=== PATIENT | female | born 1960 | race Two or more races ===

== ENCOUNTER 2020-07-08 04:17 | Day surgery (SDC) | payer OTHER ==
[2020-07-05 12:24] VITALS: BMI 31.4
[2020-07-08] MEDS ORDERED: LIDOCAINE HCL/PF 1% SDV 5ML VIAL ONE (08:47)
[2020-07-08] MEDS ORDERED: DEXAMETHASONE SOD PHOSPHATE 4 MG/1 ML VIAL ONE (08:47)
[2020-07-08] MEDS ORDERED: BUPIVACAINE HCL/PF 0.75% 10 ML VIAL ONE (08:48)
[2020-07-08] MEDS ORDERED: IOHEXOL 180 MG/1 ML ML IJ ONE ×2 (10:43→10:55)
[2020-07-08] MEDS ORDERED: LIDOCAINE HCL 1% PRESERVATIVE FREE - 30ML VIAL IJ ONE ×2 (10:44→10:55)
[2020-07-08] MEDS ORDERED: BUPIVACAINE HCL/PF 0.25% (2.5MG/ML) 10 ML VIAL IJ ONE ×2 (10:45→10:55)
[2020-07-08] MEDS ORDERED: TRIAMCINOLONE ACET 40MG/1ML VIAL NR ONE ×2 (10:45→10:55)
[2020-07-08 11:22] VITALS: BP 131/67; PULSE 58; TEMP 97.5
== END 2020-07-08 11:50 | disposition home or self-care (01) ==
LOC: JASU-SURG 04:17
PROVIDERS: ATTEND Pain Medicine Pain Medicine
PROC: 3E0U3BZ Introduction of Anesthetic Agent into Joints, Percutaneous Approach (ICD-10-PCS; 2020-07-08)
PROC: 3E0U33Z Introduction of Anti-inflammatory into Joints, Percutaneous Approach (ICD-10-PCS; principal; 2020-07-08 11:30)
DX: M25.551 Pain in right hip (principal)
CPT/HCPCS: 76000-TC-FY

== ENCOUNTER 2021-01-13 04:20 | Day surgery (SDC) | payer OTHER ==
[2021-01-10 11:12] VITALS: BMI 32.0
[2021-01-13] MEDS ORDERED: BUPIVACAINE HCL/PF 0.5% (5MG/ML) 10 ML VIAL ONE (10:13)
[2021-01-13] MEDS ORDERED: IOHEXOL 180 MG/1 ML ML IT ONE (10:16)
[2021-01-13] MEDS ORDERED: LIDOCAINE 1% P/F 10 MG/ML VIAL INF ONE (10:16)
[2021-01-13] MEDS ORDERED: BUPIVACAINE HCL/PF 0.5% (5 MG/ML) 30 ML VIAL IJ ONE (10:16)
[2021-01-13] MEDS ORDERED: TRIAMCINOLONE ACETONIDE 40 MG/ML 10 ML VIAL IJ ONE (10:16)
[2021-01-13 11:20] VITALS: BP 134/43; PULSE 64; TEMP 98.9
== END 2021-01-13 10:50 | disposition home or self-care (01) ==
LOC: JASU-SURG 04:20
PROVIDERS: ATTEND Pain Medicine Pain Medicine
PROC: 3E0U3BZ Introduction of Anesthetic Agent into Joints, Percutaneous Approach (ICD-10-PCS; 2021-01-13)
PROC: 3E0U33Z Introduction of Anti-inflammatory into Joints, Percutaneous Approach (ICD-10-PCS; principal; 2021-01-13 09:45)
DX: M53.3 Sacrococcygeal disorders, not elsewhere classified (principal)

== ENCOUNTER 2021-03-24 04:36 | Day surgery (SDC) | payer OTHER ==
[~2021-03-24 04:36] MED LIST: BUPIVACAINE HCL/PF 0.5% (5MG/ML) 10 ML VIAL IJ ONE; TRIAMCINOLONE ACET 40MG/1ML VIAL IJ ONE
[2021-03-24] MEDS ORDERED: TRIAMCINOLONE ACET 40MG/1ML VIAL ONE (07:34)
[2021-03-24] MEDS ORDERED: LIDOCAINE HCL 1%, 10 MG/ML (20ML VIAL) ONE (07:34)
[2021-03-24] MEDS ORDERED: BUPIVACAINE HCL/PF 0.5% (5MG/ML) 10 ML VIAL ONE (07:35)
[2021-03-24] MEDS ORDERED: BUPIVACAINE HCL/PF 0.75% 10 ML VIAL ONE (07:35)
[2021-03-24 08:31] VITALS: BMI 31.6
[2021-03-24] MEDS ORDERED: BUPIVACAINE HCL/PF 0.25% (2.5MG/ML) 10 ML VIAL ONE (10:54)
[2021-03-24] MEDS ORDERED: LIDOCAINE HCL 1% PRESERVATIVE FREE - 30ML VIAL IJ ONE (11:10)
[2021-03-24] MEDS ORDERED: IOHEXOL 180 MG/1 ML ML IJ ONE (11:12)
[2021-03-24] MEDS ORDERED: BUPIVACAINE HCL/PF 0.5% (5MG/ML) 10 ML VIAL IJ ONE (11:16)
[2021-03-24] MEDS ORDERED: TRIAMCINOLONE ACET 40MG/1ML VIAL IJ ONE (11:16)
[2021-03-24 14:44] VITALS: BP 121/67; PULSE 64; TEMP 98.4
== END 2021-03-24 11:55 | disposition home or self-care (01) ==
LOC: JASU-SURG 04:36
PROVIDERS: ATTEND Pain Medicine Pain Medicine
PROC: 3E0U3BZ Introduction of Anesthetic Agent into Joints, Percutaneous Approach (ICD-10-PCS; principal; 2021-03-24 09:45)
DX: M16.11 Unilateral primary osteoarthritis, right hip (principal)
CPT/HCPCS: 76000-TC-FY

== ENCOUNTER 2021-04-24 18:19 | Emergency (ER) | payer OTHER ==
[2021-04-24 18:26] VITALS: BP 124/77; PULSE 76; TEMP 97.8; BMI 32.1
[2021-04-24] MEDS ORDERED: DIPHTH,PERTUSS(ACELL),TET 0.5 ML DISP.SYRIN IM ONE ×2 (21:36)
== END 2021-04-24 22:30 | disposition home or self-care (01) ==
LOC: JERFT 18:19
PROC: 3E0234Z Introduction of Serum, Toxoid and Vaccine into Muscle, Percutaneous Approach (ICD-10-PCS; principal; 2021-04-24)
DX: S09.90XA Unspecified injury of head, initial encounter (principal); W01.0XXA Fall on same level from slipping, tripping and stumbling without subsequent striking against object, initial encounter
CPT/HCPCS: 70450-TC; 90715; 99284-25

== ENCOUNTER 2021-07-07 14:30 | Inpatient (IN) | payer OTHER ==
[2021-07-03 15:57] VITALS: BMI 32.9
[2021-07-10] MEDS ORDERED: TRANEXAMIC ACID 1000 MG/10 ML VIAL IVPUSH ONE (07:35)
[2021-07-10] MEDS ORDERED: CEFAZOLIN 2 GM in DEXTROSE 5%-WATER - 50 ML IVPB ONE (07:35)
[2021-07-10] MEDS ORDERED: BUPIVACAINE HCL/PF 2.5 MG/ML - 30 ML VIAL IJ ONE (08:43)
[2021-07-10] MEDS ORDERED: DEXAMETHASONE SOD PHOSPHATE 10 MG/1 ML VIAL ONE (09:26)
[2021-07-10] MEDS ORDERED: MIDAZOLAM HCL 2 MG/2 ML SINGLE DOSE VIAL ONE ×3 (09:26→12:38)
[2021-07-10] MEDS ORDERED: BUPIVACAINE HCL/PF 0.5% (5 MG/ML) 30 ML VIAL IJ ONE ×2 (09:26→10:35)
[2021-07-10] MEDS ORDERED: PROPOFOL 20 ML ONE ×2 (09:29→11:55)
[2021-07-10] MEDS ORDERED: SUCCINYLCHOLINE CHLORIDE 200 MG/10 ML SYRINGE ONE (09:29)
[2021-07-10] MEDS ORDERED: LIDOCAINE HCL/PF 2% SDV 5ML VIAL ONE (09:37)
[2021-07-10] MEDS ORDERED: ceFAZolin SODIUM 1 GM VIAL ONE ×2 (11:05→17:48)
[2021-07-10] MEDS ORDERED: DEXAMETHASONE SOD PHOSPHATE 4 MG/1 ML VIAL ONE (11:05)
[2021-07-10] MEDS ORDERED: ONDANSETRON 4 MG/2 ML VIAL ONE (11:05)
[2021-07-10] MEDS ORDERED: ePHEDrine SULFATE 50 MG/1 ML AMPULE ONE (11:49)
[2021-07-10] MEDS ORDERED: BUPIVICAINE 0.25%/MORPH PF/KETOROLAC - 51ML DISP.SYRINGE IA ONE (12:31)
[2021-07-10] MEDS ORDERED: VANCOMYCIN 1,000 MG VIAL (RESTRICTED TO ID ONLY) ONE (12:48)
[2021-07-10] MEDS ORDERED: MAG HYDROX/AL HYDROX/SIMETH 30 ML UNIT-DOSE CUP PO PRN (13:52)
[2021-07-10] MEDS ORDERED: ONDANSETRON 4 MG/2 ML VIAL IVPUSH PRN (13:52)
[2021-07-10] MEDS ORDERED: MAGNESIUM HYDROX 2400MG/30ML ORAL SUSPENSION 30 ML CUP PO PRN (13:52)
[2021-07-10] MEDS ORDERED: LACTATED RINGERS SOLUTION 1,000 ML IV SCH (14:00)
[2021-07-10] MEDS: KETOROLAC TROMETHAMINE 30 MG/1 ML VIAL IVPUSH SCH ×3 (14:10→19:45)
[2021-07-10] MEDS ORDERED: oxyCODONE HCL 5 MG TABLET PO PRN (14:13)
[2021-07-10] MEDS: ACETAMINOPHEN 1000 MG/100 ML BAG IVPB ONE ×2 (14:14→15:05)
[2021-07-10] MEDS: ACETAMINOPHEN 500 MG TABLET (FP) PO SCH ×2 (15:05→19:45)
[2021-07-10] MEDS ORDERED: DEXTROSE 5%-WATER - 100 ML IVPB ONE (17:48)
[2021-07-10] MEDS: CEFAZOLIN 2 GM in DEXTROSE 5%-WATER - 100 ML IVPB SCH (17:53)
[2021-07-10] MEDS: oxyCODONE HCL 10 MG SUSTAINED ACTING TABLET PO SCH (21:10)
[2021-07-10] MEDS: SENNOSIDES/DOCUSATE COMBO (SENNA PLUS) TABLET (UD) PO SCH (21:11)
[2021-07-11] MEDS: CEFAZOLIN 2 GM in DEXTROSE 5%-WATER - 100 ML IVPB SCH ×2 (02:41→09:40)
[2021-07-11] MEDS: ACETAMINOPHEN 500 MG TABLET (FP) PO SCH ×4 (02:41→21:19)
[2021-07-11] MEDS ORDERED: ceFAZolin SODIUM 1 GM VIAL ONE ×2 (03:35→08:55)
[2021-07-11] MEDS ORDERED: DEXTROSE 5%-WATER - 100 ML IVPB ONE ×2 (03:35→08:55)
[2021-07-11] MEDS: oxyCODONE HCL 5 MG TABLET PO PRN (04:52)
[2021-07-11 08:44] LABS: CALCIUM 8.6 mg/dl (8.5-10); CREATININE 0.5 mg/dl (0.55-1.3)
[2021-07-11] MEDS: ASPIRIN 325 MG TABLET PO SCH ×2 (09:36→21:19)
[2021-07-11] MEDS: PANTOPRAZOLE 40 MG TABLET PO SCH (09:36)
[2021-07-11] MEDS: oxyCODONE HCL 10 MG SUSTAINED ACTING TABLET PO SCH ×2 (09:38→21:20)
[2021-07-11] MEDS: SENNOSIDES/DOCUSATE COMBO (SENNA PLUS) TABLET (UD) PO SCH ×2 (09:38→21:19)
[2021-07-11] MEDS: MULTIVITAMINS (DAILY MVI) TABLET (FP) PO SCH (09:39)
[2021-07-11 10:00] LABS: HEMATOCRIT 34.6 % (32.4-45.2); HEMOGLOBIN 11.5 GM/dL (10.7-15.3); MCH 30.8 pg (25.7-33.7); MCHC 33.4 g/dl (32.0-36.0); MEAN CELL VOLUME 92.5 fl (80-96); MEAN PLT VOLUME 8.2 fl (7.5-11.1); PLATELET COUNT 258 10^3/uL (134-434); RBC 3.74 M/mm3 (3.60-5.2); RDW 12.9 % (11.6-15.6); WHITE BLOOD COUNT 14.6 K/mm3 (4.0-10.0)
[2021-07-11] MEDS ORDERED: PATIENT'S OWN MEDICATION (NON-FORMULARY) (Multivitamin [Multivitamin] 1 EACH Tablet) PO SCH (10:00)
[2021-07-11] MEDS ORDERED: SODIUM CHLORIDE 1,000 ML IV STA (12:51)
[2021-07-11] MEDS ORDERED: FAMOTIDINE 20 MG/50 ML IVPB 20 MG/50 ML MG IVPB ONE (13:15)
[2021-07-12] MEDS: ACETAMINOPHEN 500 MG TABLET (FP) PO SCH ×3 (03:28→14:14)
[2021-07-12] MEDS: oxyCODONE HCL 5 MG TABLET PO PRN (05:29)
[2021-07-12 09:34] LABS: HEMATOCRIT 30.8 % (32.4-45.2); HEMOGLOBIN 10.4 GM/dL (10.7-15.3); MCH 31.2 pg (25.7-33.7); MCHC 33.6 g/dl (32.0-36.0); MEAN CELL VOLUME 92.9 fl (80-96); MEAN PLT VOLUME 9.1 fl (7.5-11.1); PLATELET COUNT 203 10^3/uL (134-434); RBC 3.32 M/mm3 (3.60-5.2); RDW 13.2 % (11.6-15.6); WHITE BLOOD COUNT 12.8 K/mm3 (4.0-10.0)
[2021-07-12] MEDS: PANTOPRAZOLE 40 MG TABLET PO SCH (10:30)
[2021-07-12] MEDS: ASPIRIN 325 MG TABLET PO SCH (10:30)
[2021-07-12] MEDS: SENNOSIDES/DOCUSATE COMBO (SENNA PLUS) TABLET (UD) PO SCH (10:30)
[2021-07-12] MEDS: MULTIVITAMINS (DAILY MVI) TABLET (FP) PO SCH (10:30)
[2021-07-12] MEDS: oxyCODONE HCL 10 MG SUSTAINED ACTING TABLET PO SCH (12:25)
[2021-07-12 14:07] VITALS: BP 129/62; PULSE 77; TEMP 98.8
== END 2021-07-12 16:03 | disposition home or self-care (01) | DRG 470 ==
LOC: FM/S 07-10 08:11 → UNDODISIN 07-12 14:22
PROVIDERS: ADMIT Orthopaedic Surgery Sports Medicine; ATTEND Nurse Practitioner Acute Care
PROC: 8E0Y0CZ Robotic Assisted Procedure of Lower Extremity, Open Approach (ICD-10-PCS; 2021-07-10)
PROC: 0SR90JZ Replacement of Right Hip Joint with Synthetic Substitute, Open Approach (ICD-10-PCS; principal; 2021-07-10 11:23)
DX: M16.11 Unilateral primary osteoarthritis, right hip (principal)
CPT/HCPCS: 36415; 73502-TC-RT-FY; 80048; 85027; 88305-TC; 88311-TC; 94760; 97010-GP; 97116-GP; 97161-GP; J1100